=== PATIENT | male | born 1975 ===

== ENCOUNTER 2016-11-20 02:23 | Observation (INO) | payer SELFPAY ==
[2016-11-20 02:46] VITALS: RESP 18; TEMP 98.6; O2SAT 100
[2016-11-20] MEDS ORDERED: Sodium Chloride 0.9% 1,000 ML IV STA (02:58)
--- NOTE | 2016-11-20 03:01 | ED PDOC ---
HPI: Abdomen Time Seen by Provider: 11/20/16 02:59 Chief Complaint (Nursing): Abdominal Pain Chief Complaint (Provider): abdominal pain History Per: Patient (41 y/o male here with ruq pain since eating dinner at 10: 30pm. Notes now improvement despite use of caprice selter/water of anise/motrin 400mg. (+) vomiting. (-) diarrhea. (-) fevers. No prior surgeries.) Past Medical History Reviewed: Historical Data, Nursing Documentation, Vital Signs Vital Signs: Last Vital Signs Temp 98.6 F 11/20/16 02:44 Pulse 62 11/20/16 07:41 Resp 18 11/20/16 07:41 BP 122/70 11/20/16 07:41 Pulse Ox 100 11/22/16 18:40 - Family History Family History: States: No Known Family Hx - Home Medications Home Medications: Ambulatory Orders Medication Instructions Recorded Ibuprofen [Motrin Tab] 600 mg PO Q8 PRN #60 tab 11/20/16 traMADol [Ultram] 50 mg PO TID PRN #10 tab 11/20/16 - Allergies Allergies/Adverse Reactions: Allergies Allergy/AdvReac Type Severity Reaction Status Date / Time No Known Allergies Allergy Verified 11/20/16 02:57 Review of Systems ROS Statement: Except As Marked, All Systems Reviewed And Found Negative Gastrointestinal: Positive for: Vomiting, Abdominal Pain Physical Exam - Reviewed Nursing Documentation Reviewed: Yes Vital Signs Reviewed: Yes - Physical Exam Appears: Positive for: Well, Non-toxic, No Acute Distress Head Exam: Positive for: ATRAUMATIC, NORMAL INSPECTION, NORMOCEPHALIC Skin: Positive for: Normal Color, Warm, DRY Eye Exam: Positive for: EOMI, Normal appearance, PERRL ENT: Positive for: Normal ENT Inspection Neck: Positive for: Normal, Painless ROM Cardiovascular/Chest: Positive for: Regular Rate, Rhythm Respiratory: Positive for: CNT, Normal Breath Sounds Gastrointestinal/Abdominal: Positive for: Normal Exam, Bowel Sounds, Soft, Tenderness (ruq tenderness.) Back: Positive for: Normal Inspection Extremity: Positive for: Normal ROM Neurologic/Psych: Positive for: Alert, Oriented - Laboratory Results Result Diagrams: 11/20/16 03:12 11/20/16 03:12 - ECG O2 Sat by Pulse Oximetry: 100 - Progress ED Course And Treament: pepcid 20 mg iv x 1 dose zofran 4 mg iv x 1 dose morphine 4 mg iv x 1 dose ns 1 liter wide open ED OBSERVATION Date of observation admission: 11/20/16 Time of observation admission: 04:45 - Observation admission statement Patient is being placed in observation because:: management/evaluation of abdominal pain - Goals of Observation Goals of observation are:: management of abdominal ain - Progress Note Progress Note: 11/20/16 04:45 CT abd/юлия: demonstrate gallbladder distention will obtain US of RUQ in am Disposition - Clinical Impression Clinical Impression: Cholelithiasis - Patient ED Disposition Is Patient to be Admitted: Transfer of Care - Disposition Disposition: Transfer of Care Disposition Time: 06:00 Condition: FAIR Patient Signed Over To: Miriam Yousif
[2016-11-20 03:19] LABS: BASO % 0.4 % (0.0-2.0); EOS % 0.2 % (0.0-4.0); HEMATOCRIT 42.5 % (35.0-51.0); LYMPH # 2.1 K/uL (1.0-4.3); LYMPH % 15.1 % (20.0-40.0); MEAN CELL VOLUME 88.2 fl (80.0-94.0); MEAN CORPUSCULAR HEMOGLOBIN 30.1 pg (27.0-31.0); MEAN CORPUSCULAR HGB CONC 34.2 g/dL (33.0-37.0); MONO # 0.6 K/uL (0.0-0.8); MONO % 4.1 % (0.0-10.0); NEUT # 11.1 K/uL (1.8-7.0); NEUT % 80.2 % (50.0-75.0); RED CELL DISTRIBUTION WIDTH 13.3 % (11.5-14.5); WHITE BLOOD COUNT 13.9 K/uL (4.8-10.8)
[2016-11-20 03:27] LABS: CHLORIDE 102 mmol/L (98-107); SODIUM 140 mmol/l (132-148)
[2016-11-20 03:29] LABS: BILIRUBIN,TOTAL 0.7 mg/dl (0.2-1.3); GFR AFRICAN-AMERICAN > 60
[2016-11-20 03:30] LABS: ALB/GLOB RATIO 1.1 (1.0-2.1); ALKALINE PHOSPHATASE 93 U/L (38-126); ALT/SGPT 28 U/L (21-72); AST/SGOT 29 U/L (17-59); BLOOD UREA NITROGEN 17 mg/dl (9-20); CALCIUM 8.7 mg/dL (8.4-10.2); CARBON DIOXIDE 31 mmol/L (22-30); GLUCOSE,RANDOM 122 mg/dL (75-110); LIPASE 78 U/L (23-300); TOTAL PROTEIN 8.8 G/DL (6.3-8.2)
--- NOTE | 2016-11-20 04:31 | CT ---
EXAM: CT Abdomen and Pelvis With Intravenous Contrast CLINICAL HISTORY: 41 years old, male; Pain; Abdominal pain; Generalized; Additional info: Ruq pain; Evaluate appendix/gallbladder TECHNIQUE: Axial computed tomography images of the abdomen and pelvis with intravenous contrast. This CT exam was performed using one or more of the following dose reduction techniques: automated exposure control, adjustment of the mA and/or kV according to patient size, and/or use of iterative reconstruction technique. Coronal and sagittal reformatted images were created and reviewed. CONTRAST: 95 mL of [id number] administered intravenously. COMPARISON: No relevant prior studies available. FINDINGS: Limitations: Motion artifact - mild. Lower thorax: Minimal atelectasis. Few calcified granulomas. ABDOMEN: Liver: Unremarkable. No mass. Gallbladder and bile ducts: Mild gallbladder distention. No calcified stones. No ductal dilation. Pancreas: No ductal dilation. No mass. Spleen: No splenomegaly. Adrenals: No mass. Kidneys and ureters: No mass. No hydronephrosis. Stomach and bowel: Underdistention of LEFT colon. No definite mural thickening. No obstruction. Appendix: Normal caliber. No inflammation. PELVIS: Bladder: Unremarkable. Reproductive: Unremarkable as visualized. ABDOMEN and PELVIS: Intraperitoneal space: No significant fluid collection. No free air. Bones/joints: Mild degenerative changes of spine. No acute fracture. Soft tissues: Small RIGHT inguinal hernia containing fat. Vasculature: Unremarkable. No aneurysm. Lymph nodes: No pathologically enlarged lymph nodes. IMPRESSION: 1. Gallbladder distention. Suggest ultrasound. 2. Incidental/non-acute findings are described above.
[2016-11-20 04:51] LABS: RBC URINE 5 /hpf (0-3); URINE BILIRUBIN NEGATIVE (NEGATIVE); URINE BLOOD NEGATIVE (NEGATIVE); URINE COLOR YELLOW (YELLOW); URINE GLUCOSE (UA) NEG (Normal); URINE KETONE NEGATIVE (NEGATIVE); URINE LEUKOCYTE ESTERASE NEG Leu/uL (Negative); URINE PROTEIN NEGATIVE (NEGATIVE); URINE UROBILINOGEN 0.2-1.0 mg/dL (0.2-1.0); WBC URINE 1 /hpf (0-5)
[2016-11-20] MEDS ORDERED: Alum-Mag Hydrox-Simethicone Susp (30 mL) PO ONE (05:50)
--- NOTE | 2016-11-20 06:53 | US ---
EXAM: US Abdomen Limited, Right Upper Quadrant CLINICAL HISTORY: 41 years old, male; Pain; Abdominal pain; Epigastric; Additional info: Ruq pain TECHNIQUE: Real-time ultrasound of the right upper quadrant with image documentation. COMPARISON: CT - ABD PELVIS IV CONTRAST ONLY 11/20/2016 3:49:37 AM FINDINGS: Liver: Normal echogenicity. No mass. No intrahepatic bile duct dilatation. Gallbladder: Gallbladder distention. Nonmobile stones within neck. Up to 0.58 cm wall thickness. No pericholecystic fluid. No sonographic Riggs's sign. Common bile duct: No dilatation. No stones. Pancreas: Unremarkable as visualized. Right kidney: Normal echogenicity. No hydronephrosis. IMPRESSION: 1. Cholelithiasis with gallbladder wall thickening. Clinical correlation is needed. 2. Incidental/non-acute findings are described above.
[2016-11-20 07:42] VITALS: BP 122/70; PULSE 62
== END 2016-11-20 07:28 | disposition home or self-care (01) ==
LOC: H.ER 02:23 → H.EROBSV 04:44
PROVIDERS: ADMIT Emergency Medicine; ATTEND Emergency Medicine
DX: R10.11 Right upper quadrant pain (principal)
CPT/HCPCS: 74177; 76705; 80053; 81003; 83690; 85025; 96374; 96375; 99282; G0378; J2270; J2405; J7040

== ENCOUNTER 2017-03-18 21:07 | Emergency (ER) | payer OTHER ==
[2017-03-18 21:13] VITALS: BP 143/75; PULSE 57; RESP 16; TEMP 96.7; O2SAT 98
[2017-03-18] MEDS ORDERED: Sodium Chloride 0.9% 1,000 ML IV STA (21:49)
--- NOTE | 2017-03-18 22:07 | ED PDOC ---
HPI: Abdomen Time Seen by Provider: 03/18/17 21:25 Chief Complaint (Nursing): Abdominal Pain Chief Complaint (Provider): Severe abdominal pain History Per: Patient, Family History/Exam Limitations: no limitations Additional Complaint(s): 41 y/o M c/o severe RUQ abdominal pain that began 9 hours ago, is sharp, radiates diffusively to all abdomen, 10/10 intensity, associated with nausea and vomiting. Onset was 2 hours after having eggs for breakfast. Pt took Ibuprofen and Tramadol with NO improvement. Previous episode 4 months ago, CT and US of abdomen showed cholelithiasis. Pt never followed up with PCP/general surgeon. Pt denies CP, SOB, diarrhea. NKDA PMHx: denied. PSHx: denied DHx: No tobacco, alcohol or rec drugs. Past Medical History Vital Signs: Last Vital Signs Temp 96.7 F L 03/18/17 21:10 Pulse 57 L 03/18/17 21:10 Resp 16 03/18/17 21:10 BP 143/75 03/18/17 21:10 Pulse Ox 98 03/18/17 23:37 - Medical History PMH: No Chronic Diseases - Surgical History Surgical History: No Surg Hx - Family History Family History: States: No Known Family Hx - Social History Current smoker - smoking cessation education provided: No Alcohol: None Drugs: Denies - Home Medications Home Medications: Ambulatory Orders Medication Instructions Recorded Ibuprofen [Motrin Tab] 600 mg PO Q8 PRN #60 tab 11/20/16 traMADol [Ultram] 50 mg PO TID PRN #10 tab 11/20/16 Acetaminophen/Hydrocodone Bi 1 tab PO Q8 #12 tab 03/18/17 [Vicodin 300 mg-5 mg] Ibuprofen [Motrin Tab] 600 mg PO Q6 #30 tab 03/18/17 - Allergies Allergies/Adverse Reactions: Allergies Allergy/AdvReac Type Severity Reaction Status Date / Time No Known Allergies Allergy Verified 03/18/17 21:10 Review of Systems Constitutional: Negative for: Fever, Chills ENT: Negative for: Throat Pain Cardiovascular: Negative for: Chest Pain, Palpitations Respiratory: Negative for: Cough, Shortness of Breath, Hemoptysis Gastrointestinal: Positive for: Nausea, Vomiting, Abdominal Pain. Negative for : Diarrhea, Constipation, Melena Physical Exam - Physical Exam Appears: Positive for: Uncomfortable Head Exam: Positive for: NORMAL INSPECTION Skin: Positive for: Diaphoresis Eye Exam: Positive for: Normal appearance ENT: Positive for: Normal ENT Inspection Neck: Positive for: Normal, Supple Cardiovascular/Chest: Positive for: Regular Rate, Rhythm Respiratory: Positive for: Normal Breath Sounds Gastrointestinal/Abdominal: Positive for: Bowel Sounds, Soft, Tenderness (( diffusively, predominantly on palpation of RUQ)). Negative for: Guarding, Rebound Neurologic/Psych: Positive for: Alert, Oriented - Laboratory Results Result Diagrams: 03/18/17 22:12 03/18/17 22:12 - ECG O2 Sat by Pulse Oximetry: 98 Medical Decision Making Medical Decision Makin41 y/o M presenting with severe RUQ abdominal pain, nausea and vomiting. Plan: --CBC --CMP --US abdomen-gallbladder --IV morphine --IV NSS 0.9% --Zofran 20:20 IV Morphine was administered. 23:25 Pt reports marked improvement of abdominal pain and nausea. US abdomen reviewed, showed cholelithiasis. Pt will be discharged and prescribed Vicodin, pt was extensively counseled on the risks, addictive characteristics and complications from opioid overuse. Pt advised to follow a soft, fat-free diet well-balanced diet, and to return to ER if intolerable pain, fever or PO intolerance. Disposition - Clinical Impression Clinical Impression: Biliary colic - Patient ED Disposition Is Patient to be Admitted: No - Disposition Referrals: Oz Jones MD [Staff Provider] - Disposition Time: 00:30 Condition: IMPROVED Prescriptions: Acetaminophen/Hydrocodone Bi [Vicodin 300 mg-5 mg] 1 tab PO Q8 #12 tab Ibuprofen [Motrin Tab] 600 mg PO Q6 #30 tab Instructions: Biliary Colic (ED) Forms: [employer] (Portuguese) Print Language: [email or web address]
[2017-03-18] MEDS ORDERED: HYDROmorphone 0.5 mg/0.5 ml ISec IVP STA (22:15)
--- NOTE | 2017-03-18 22:44 | US ---
EXAM: US Abdomen Complete CLINICAL HISTORY: 41 years old, male; Pain; Abdominal pain; Acute; Additional info: Ruq pain TECHNIQUE: Real-time ultrasound of the abdomen (limited) with image documentation. COMPARISON: No relevant prior studies available. FINDINGS: Liver: The liver is normal measuring 15.1 cm. No intrahepatic bile duct dilation. Gallbladder: Multiple gallbladder neck stones. The gallbladder wall is top normalmeasuring 3 mm. Common bile duct: The common bile duct is normal measuring 5 mm. No stones. No dilation. Pancreas: The pancreas is poorly-visualized due to overlying bowel gas. Kidneys: The right kidney is normal measuring 11.8 cm. No stones. No hydronephrosis. IMPRESSION: Cholelithiasis. No evidence of acute cholecystitis.
[2017-03-18 22:59] LABS: BASO % 0.4 % (0.0-2.0); EOS % 0.2 % (0.0-4.0); LYMPH # 1.6 K/uL (1.0-4.3); LYMPH % 15.1 % (20.0-40.0); MEAN CELL VOLUME 89.4 fl (80.0-94.0); MEAN CORPUSCULAR HEMOGLOBIN 29.5 pg (27.0-31.0); MEAN PLATELET VOLUME 10.7 fl (7.2-11.7); MONO # 0.5 K/uL (0.0-0.8); MONO % 4.4 % (0.0-10.0); NEUT # 8.5 K/uL (1.8-7.0); NEUT % 79.9 % (50.0-75.0); WHITE BLOOD COUNT 10.7 K/uL (4.8-10.8)
[2017-03-18 23:09] LABS: ALB/GLOB RATIO 1.4 (1.0-2.1); ALKALINE PHOSPHATASE 80 U/L (38-126); ALT/SGPT 34 U/L (21-72); AST/SGOT 28 U/L (17-59); BILIRUBIN,TOTAL 0.9 mg/dl (0.2-1.3); BLOOD UREA NITROGEN 17 mg/dl (9-20); CALCIUM 8.8 mg/dL (8.4-10.2); CARBON DIOXIDE 25 mmol/L (22-30); CHLORIDE 100 mmol/L (98-107); GFR AFRICAN-AMERICAN > 60; GLUCOSE,RANDOM 124 mg/dL (75-110); LIPASE 72 U/L (23-300); POTASSIUM 3.4 MMOL/L (3.6-5.0); SODIUM 138 mmol/l (132-148)
[2017-03-18] MEDS ORDERED: Oxycodone/Acetaminophen 5/325 mg Tab PO ONE (23:59)
== END 2017-03-19 00:12 | disposition home or self-care (01) ==
LOC: H.ER 21:07
DX: K80.20 Calculus of gallbladder without cholecystitis without obstruction (principal); R11.2 Nausea with vomiting, unspecified
CPT/HCPCS: 76705; 80053; 83690; 85025; 96374; 96375; 99283; J1170; J2405; J7040

== ENCOUNTER 2018-10-07 20:45 | Inpatient (IN) | payer MEDICAID, OTHER ==
[2018-10-07] MEDS ORDERED: Sodium Chloride 0.9% 1,000 ML IV STA (21:01)
--- NOTE | 2018-10-07 21:19 | ED PDOC ---
HPI: Abdomen Time Seen by Provider: 10/07/18 20:54 Chief Complaint (Nursing): Abdominal Pain Chief Complaint (Provider): Abdominal pain History Per: Patient History/Exam Limitations: no limitations Onset/Duration Of Symptoms: Hrs (2 hours 15 minutes) Current Symptoms Are (Timing): Still Present Severity: Moderate Location Of Pain/Discomfort: RUQ Associated Symptoms: Nausea Additional Complaint(s): 43 year old male with a past medical history of gallstones presents to the ED for an evaluation of right upper quadrant abdominal pain associated with nausea that started 2.25x hours prior to arrival. Patient denies having fevers, vomiting, diarrhea, or chest pain. PMD: None provided Past Medical History Reviewed: Historical Data, Nursing Documentation, Vital Signs Vital Signs: Last Vital Signs Temp 97.6 F 10/07/18 20:47 Pulse 57 L 10/07/18 20:47 Resp 18 10/07/18 20:47 BP 160/70 H 10/07/18 20:47 Pulse Ox 100 10/07/18 20:47 PATIENCE Report Viewed: Yes Primary Care Provider: FAMILY PROVIDER,NO - Medical History Other PMH: cholelithiasis - Surgical History Surgical History: No Surg Hx - Family History Family History: States: No Known Family Hx - Social History Current smoker - smoking cessation education provided: No Alcohol: Occasional Drugs: Denies - Home Medications Home Medications: Ambulatory Orders Medication Instructions Recorded Ibuprofen [Motrin Tab] 600 mg PO Q8 PRN #60 tab 11/20/16 traMADol [Ultram] 50 mg PO TID PRN #10 tab 11/20/16 Acetaminophen/Hydrocodone Bi 1 tab PO Q8 #12 tab 03/18/17 [Vicodin 300 mg-5 mg] Ibuprofen [Motrin Tab] 600 mg PO Q6 #30 tab 03/18/17 - Allergies Allergies/Adverse Reactions: Allergies Allergy/AdvReac Type Severity Reaction Status Date / Time No Known Allergies Allergy Verified 03/18/17 21:10 Review of Systems ROS Statement: Except As Marked, All Systems Reviewed And Found Negative Constitutional: Negative for: Fever Cardiovascular: Negative for: Chest Pain Gastrointestinal: Positive for: Nausea, Abdominal Pain (RUQ). Negative for: Vomiting, Diarrhea Physical Exam - Reviewed Nursing Documentation Reviewed: Yes Vital Signs Reviewed: Yes - Physical Exam Appears: Positive for: Well, Non-toxic, No Acute Distress Head Exam: Positive for: ATRAUMATIC, NORMOCEPHALIC Skin: Positive for: Normal Color, Warm, Dry Eye Exam: Positive for: Normal appearance Cardiovascular/Chest: Positive for: Regular Rate, Rhythm Respiratory: Positive for: Normal Breath Sounds Gastrointestinal/Abdominal: Positive for: Soft, Tenderness (moderate tenderness to RUQ). Negative for: Guarding, Rebound Neurological/Psych: Positive for: Awake, Alert, Oriented (3x) - Laboratory Results Result Diagrams: 10/07/18 21:25 10/07/18 21:25 - ECG O2 Sat by Pulse Oximetry: 100 (RA) Pulse Ox Interpretation: Normal Medical Decision Making Medical Decision Makin:54 Initial impression: 43 year old male with abdominal pain. Given history of gallstones, labwork and imaging to be done while giving pain medications and fluids. Initial plan: * CT abd and pelvis w/o contrast * EKG * CMP * lipase * udip * CBC * IV NS 1,000 ml IV 100 mls/hr * morphine 2 mg IVP once * pepcid 20 mg IVP * zofran 4 mg IVP once * reevaluation 23:00 Patient signed out to Jessica Scott MD pending CT and reevaluation. Scribe Attestation: Documented by Keyana Lucio, acting as a scribe for Geovanny Tovar MD. Provider Scribe Attestation: All medical record entries made by the Scribe were at my direction and perso david dictated by me. I have reviewed the chart and agree that the record accurately reflects my personal performance of the history, physical exam, medical decision making, and the department course for this patient. I have also personally directed, reviewed, and agree with the discharge instructions and disposition. Disposition - Clinical Impression Clinical Impression: Abdominal pain - Patient ED Disposition Is Patient to be Admitted: Transfer of Care - Disposition Disposition: Transfer of Care Disposition Time: 22:47 Condition: FAIR Forms: [email or web address] (Sami) Patient Signed Over To: Jessica Scott (Pending imaging and reeval)
[2018-10-07 21:29] LABS: BASO # 0.1 K/uL (0.0-0.2); BASO % 0.5 % (0.0-2.0); EOS # 0.1 K/uL (0.0-0.7); EOS % 1.1 % (0.0-4.0); HEMOGLOBIN 14.4 g/dL (12.0-18.0); LYMPH # 1.8 K/uL (1.0-4.3); LYMPH % 13.3 % (20.0-40.0); MEAN CELL VOLUME 89.2 fl (80.0-94.0); MEAN CORPUSCULAR HGB CONC 33.6 g/dL (33.0-37.0); MEAN PLATELET VOLUME 10.1 fl (7.2-11.7); MONO # 0.6 K/uL (0.0-0.8); MONO % 4.6 % (0.0-10.0); NEUT # 10.9 K/uL (1.8-7.0); NEUT % 80.5 % (50.0-75.0); RBC 4.8 Mil/uL (4.40-5.90); RED CELL DISTRIBUTION WIDTH 12.7 % (11.5-14.5); WHITE BLOOD COUNT 13.5 K/uL (4.8-10.8)
[2018-10-07 21:38] LABS: ALB/GLOB RATIO 1.3 (1.0-2.1); ALBUMIN 4.6 g/dL (3.5-5.0); ALT/SGPT 39 U/L (21-72); AST/SGOT 30 U/L (17-59); BLOOD UREA NITROGEN 17 mg/dl (9-20); CALCIUM 8.6 mg/dL (8.4-10.2); GFR NON-AFRICAN AMERICAN > 60; LIPASE 79 U/L (23-300)
[2018-10-07] MEDS ORDERED: Morphine 4 MG/ML VIAL ONE (21:38)
[2018-10-07] MEDS ORDERED: Morphine 4 MG/ML VIAL IVP ONE (21:38)
[2018-10-07] MEDS ORDERED: Iohexol 300 100 ML IJ ONE (22:41)
[2018-10-07] MEDS ORDERED: Sodium Chloride 0.9% 100 ML IV ONE (22:42)
--- NOTE | 2018-10-07 22:46 | ED PDOC ---
- Laboratory Results Result Diagrams: 10/10/18 06:00 10/10/18 06:00 Lab Results: Total Bilirubin 0.4 mg/dl (0.2-1.3) 10/07/18 21:25 AST 30 U/L (17-59) 10/07/18 21:25 ALT 39 U/L (21-72) 10/07/18 21:25 Alkaline Phosphatase 92 U/L (38-126) 10/07/18 21:25 Total Protein 8.0 G/DL (6.3-8.2) 10/07/18 21:25 Albumin 4.6 g/dL (3.5-5.0) 10/07/18 21:25 Globulin 3.4 gm/dL (2.2-3.9) 10/07/18 21:25 Albumin/Globulin Ratio 1.3 (1.0-2.1) 10/07/18 21:25 Lipase 79 U/L (23-300) 10/07/18 21:25 - ECG O2 Sat by Pulse Oximetry: 100 (RA) Medical Decision Making Medical Decision Makin Patient signed out to me by Geovanny Tovar MD pending CT and US and reevaluation. 0147 US Abdomen Findings: Liver is normal in size measuring 15 cm. Diffuse thickening of the gallbladder measuring 4.4 mm. Impacted gallstone in the neck of the gallbladder. Distended gallbladder. Limited visualization of the pancreas secondary to gaseous bowel distention. Nondilated common bile duct measuring 5.4 mm. Unremarkable right kidney. Impression: Cholelithiasis. Developing acute cholecystitis. CT Abdomen/Pelvis Findings: Calcified granulomas of the right lower lobe. Calcified mediastinal and hilar lymph nodes. Impacted gallstones in the neck of the gallbladder. Distended, diffusely thickened gallbladder. Fat-containing right inguinal hernia without incarceration. Uncomplicated colonic diverticulosis. The liver is of uniform attenuation without mass or defect. There is no intra or extrahepatic biliary ductal dilatation. The spleen is normal. The pancreas is of normal contour and attenuation characteristics. There is no evidence of adrenal mass. Both kidneys demonstrate prompt and equal nephrograms. The kidneys are normal in size, shape and configuration. There is no evidence of renal or ureteral mass. No renal or ureteral calculi are identified. There is no hydroureter or hydronephrosis. No evidence for appendicitis. There is no bowel wall thickening. No evidence for small or large bowel obstruction. There is no evidence of abdominal ascites or lymphadenopathy. There is no evidence of intrinsic or extrinsic bladder mass. There is no pelvic ascites or lymphadenopathy. Images of the lung bases show no evidence of pleural or parenchymal mass. There are no pleural effusions. The bony structures are free of lytic or blastic lesions. IMPRESSION: Calcified granulomas of the right lower lobe. Calcified mediastinal and hilar lymph nodes. Impacted gallstones in the neck of the gallbladder. Distended, diffusely thickened gallbladder. Findings are suggestive of mild changes of acute calculous cholecystitis. Fat-containing right inguinal hernia without incarceration. Uncomplicated colonic diverticulosis. Patient started on IV Zosyn as well as ivfluids Patient to be admitted to [facility]-surg due to cholecystitis [address] Knutson, hospitalist senior talent acquisition specialist, who accepts patient for admission GI and Surgery consulted; patient evaluated by Dr. Jones in 2017 so she jean be attending for surgery consult. Care transferred to Dr. Knutson at this time. [address] Ramirez (surgical product sales consultant) who will review and discuss with Dr Jones 0229 VBG reviewed, lactate is 2.6 Repeat lactate ordered for 3 hours [address] Pelayo, who will be consulted for GI given finding of impacted stone in neck of gallbladder - Scribe Attestation: Documented by Keyana Lucio, acting as a scribe for Jessica Scott MD. Provider Scribe Attestation: All medical record entries made by the Scribe were at my direction and personally dictated by me. I have reviewed the chart and agree that the record accurately reflects my personal performance of the history, physical exam, medical decision making, and the department course for this patient. I have also personally directed, reviewed, and agree with the discharge instructions and disposition. Disposition Counseled Patient/Family Regarding: Studies Performed, Diagnosis - Clinical Impression Clinical Impression: Abdominal pain, Cholelithiasis, Cholecystitis - POA Present On Arrival: None - Disposition Disposition: Admitted as In-Patient Disposition Time: 01:53 Condition: FAIR
[2018-10-08] MEDS ORDERED: Piperacillin/Tazobact 4.5 GM in Sodium Chloride 0.9% 100 ML IVPB STA (01:48)
[2018-10-08] MEDS ORDERED: Morphine 4 MG/ML VIAL IV ONE ×2 (01:52→01:54)
[2018-10-08] MEDS ORDERED: Sodium Chloride 0.9% 1,000 ML IV STA (01:52)
[2018-10-08] MEDS ORDERED: Morphine 4 MG/ML VIAL IVP PRN (02:12)
[2018-10-08] MEDS ORDERED: Morphine 4 MG/ML VIAL ONE (02:17)
--- NOTE | 2018-10-08 02:22 | CP.PCM.HP ---
<Jaja Pittman - Last Filed: 10/08/18 02:34> History of Present Illness - History of Present Illness History of Present Illness: 43 yo male with no pertinent medical history presented to the ED with RUQ pain that started 7 pm, 10/07/18. RUQ pain is reported as constant, 10/10 pain assoc iated with NBNB vomitus (total of 3 episodes). Reports he has experienced this pain once before but it resolved on its own. Denies fevers, chills, diarrhea, sick contacts, dysuria, frequency or urgency. ROS: negative except for stated above in HPI PMD: None Surgical hx: Denies Medical hx: Denies Family hx: non-contributory Alleriges: N.K.D.A Social hx: Drinks alcohol socially, No illicit drug use and no smoking history. ED course: Hemodynamically stable - CT abd and pelvis w/o contrast - EKG - CMP; lipase; CBC - udip - 1L NS @ maintenance - morphine 4 mg IVP once and 2 mg IVP once - pepcid 20 mg IVP - zofran 4 mg IVP once Present on Admission - Present on Admission Any Indicators Present on Admission: No Past Patient History - Past Social History Alcohol: Occasional Drugs: Denies - PSYCHIATRIC Hx Substance Use: No - SURGICAL HISTORY Hx Surgeries: No - ANESTHESIA Hx Anesthesia: No Meds Allergies/Adverse Reactions: Allergies Allergy/AdvReac Type Severity Reaction Status Date / Time No Known Allergies Allergy Verified 03/18/17 21:10 Physical Exam - Constitutional Appears: In Acute Distress (in pain and diaphoretic) - Eye Exam Eye Exam: Normal appearance - ENT Exam ENT Exam: Mucous Membranes Moist - Respiratory Exam Respiratory Exam: Clear to Auscultation Bilateral, NORMAL BREATHING PATTERN. absent: Accessory Muscle Use, Chest Wall Tenderness, Decreased Breath Sounds, Prolonged Expiratory Phase, Rales, Rhonchi, Wheezes, Respiratory Distress, Stridor - Cardiovascular Exam Cardiovascular Exam: REGULAR RHYTHM, +S1, +S2 - GI/Abdominal Exam GI & Abdominal Exam: Normal Bowel Sounds, Soft, Tenderness (RUQ tenderness, riggs's positive). absent: Distended, Firm, Rigid - Extremities Exam Extremities exam: Positive for: normal capillary refill, normal inspection, pedal pulses present (+2 dorsalis pedis and tibialis posterior present bilaterally.). Negative for: calf tenderness, pedal edema, tenderness - Neurological Exam Neurological exam: Alert, Oriented x3 - Psychiatric Exam Psychiatric exam: Normal Affect, Normal Mood - Skin Skin Exam: Dry, Intact, Normal Color, Warm Results - Vital Signs Recent Vital Signs: Last Vital Signs Temp 98.7 F 10/07/18 23:48 Pulse 55 L 10/07/18 23:48 Resp 18 10/07/18 23:48 BP 130/60 10/07/18 23:48 Pulse Ox 100 10/08/18 01:59 - Labs Result Diagrams: 10/07/18 21:25 10/07/18 21:25 Labs: Laboratory Results - last 24 hr 10/07/18 10/07/18 21:25 21:25 WBC 13.5 H RBC 4.80 Hgb 14.4 Hct 42.9 MCV 89.2 MCH 30.0 MCHC 33.6 RDW 12.7 Plt Count 163 MPV 10.1 Neut % (Auto) 80.5 H Lymph % (Auto) 13.3 L Terry % (Auto) 4.6 Eos % (Auto) 1.1 Baso % (Auto) 0.5 Neut # (Auto) 10.9 H Lymph # (Auto) 1.8 Terry # (Auto) 0.6 Eos # (Auto) 0.1 Baso # (Auto) 0.1 Sodium 139 Potassium 3.8 Chloride 98 Carbon Dioxide 30 Anion Gap 15 BUN 17 Creatinine 1.1 Est GFR ( Amer) > 60 Est GFR (Non-Af Amer) > 60 Random Glucose 137 H Calcium 8.6 Total Bilirubin 0.4 AST 30 ALT 39 Alkaline Phosphatase 92 Total Protein 8.0 Albumin 4.6 Globulin 3.4 Albumin/Globulin Ratio 1.3 Lipase 79 Assessment & Plan (1) Acute cholecystitis Status: Acute - Assessment and Plan (Free Text) Assessment: 43 yo male with no pertinent medical history presented to the ED with RUQ pain admitted for Acute Cholecystitis. Plan: 1. Acute Cholecystitis - Admit to Med/Surg - Hemodynamically stable, afebrile - Leukocytosis of 132.5 - U/s: Cholithiasis, developing acute cholecystitis - CT Abd/Pelvis: Calcified granulomas of the right lower lobe. Calcified mediastinal and hilar lymph nodes. Impacted gallstones in the neck of the gallbladder. Distended, diffusely thickened gallbladder. Findings are suggestive of mild changes of acute calculous cholecystitis. Fat-containing right inguinal hernia without incarceration. Uncomplicated colonic diverticulosis. - NPO - Surgery consult appreciated - Zosyn Q6H - Pain medications: Morphine - Zofran for nausea - Follow up labs 2. DVT prophylaxis - SCD - early ambulation 3. Full code <Mat Knutson - Last Filed: 10/08/18 06:52> Results - Vital Signs Recent Vital Signs: Last Vital Signs Temp 99 F 10/08/18 02:58 Pulse 71 10/08/18 03:10 Resp 19 10/08/18 03:10 BP 123/73 10/08/18 02:58 Pulse Ox 100 10/08/18 06:17 - Labs Result Diagrams: 10/07/18 21:25 10/07/18 21:25 Labs: Laboratory Results - last 24 hr 10/07/18 10/07/18 10/08/18 21:25 21:25 02:25 WBC 13.5 H RBC 4.80 Hgb 14.4 Hct 42.9 MCV 89.2 MCH 30.0 MCHC 33.6 RDW 12.7 Plt Count 163 MPV 10.1 Neut % (Auto) 80.5 H Lymph % (Auto) 13.3 L Terry % (Auto) 4.6 Eos % (Auto) 1.1 Baso % (Auto) 0.5 Neut # (Auto) 10.9 H Lymph # (Auto) 1.8 Terry # (Auto) 0.6 Eos # (Auto) 0.1 Baso # (Auto) 0.1 pO2 26 L VBG pH 7.31 L VBG pCO2 61 H VBG HCO3 25.6 VBG Total CO2 32.6 H VBG O2 Sat (Calc) 49.5 VBG Base Excess 2.8 H VBG Potassium 3.9 Glucose 129 H Lactate 2.6 H FiO2 21.0 Sodium 139 134.0 Potassium 3.8 Chloride 98 99.0 Carbon Dioxide 30 Anion Gap 15 BUN 17 Creatinine 1.1 Est GFR ( Amer) > 60 Est GFR (Non-Af Amer) > 60 Random Glucose 137 H Calcium 8.6 Total Bilirubin 0.4 AST 30 ALT 39 Alkaline Phosphatase 92 Total Protein 8.0 Albumin 4.6 Globulin 3.4 Albumin/Globulin Ratio 1.3 Lipase 79 Venous Blood Potassium 3.9 Assessment & Plan - Assessment and Plan (Free Text) Plan: History as documented by resident was reviewed with patient and resident. I performed the slaughter elements of exam and agree with the above findings. Diagnostics were reviewed and medical decision making and plan of care performed by me. 43 yo male with no significant PMH p/w severe RUQ pain since last night. On exam has positive Riggs' sign with severe RUQ tenderness and guarding but no rigidity or rebound. Blood work unremarkable except for WBC of 13.[address] showed acute cholecysitis which was verified on US with suspicious GB neck stone. Agree with IVF and Zosyn. NPO, surgery and GI consult. As far as risk assessment patient is of average risk for an intermed iate risk procedure (cholecystectomy). No need for any further pre-op work up. Can proceed with surgery as deemed appropriate by surgical team.
[2018-10-08 02:28] LABS: VENOUS BLOOD GAS BASE EXCESS 2.8 mmol/L (0.0-2.0); VENOUS BLOOD GAS PCO2 61 mmHg (40-60); VENOUS BLOOD GAS PO2 26 mm/Hg (30-55); VENOUS BLOOD PH 7.31 (7.32-7.43)
[2018-10-08] MEDS: Piperacillin/Tazobact 3.375 GM in Sodium Chloride 0.9% 100 ML IVPB SCH ×4 (03:42→21:44)
[2018-10-08] MEDS: Lactated Ringer's 1,000 ML IV SCH ×2 (06:40→11:01)
[2018-10-08 06:44] LABS: HEMOGLOBIN 15.1 g/dL (12.0-18.0); MEAN CELL VOLUME 90.2 fl (80.0-94.0); MEAN CORPUSCULAR HEMOGLOBIN 29.8 pg (27.0-31.0); MEAN CORPUSCULAR HGB CONC 33.1 g/dL (33.0-37.0); RBC 5.04 Mil/uL (4.40-5.90); RED CELL DISTRIBUTION WIDTH 12.7 % (11.5-14.5); WHITE BLOOD COUNT 21.2 K/uL (4.8-10.8)
[2018-10-08 07:14] LABS: ALB/GLOB RATIO 1.3 (1.0-2.1); ALBUMIN 4.8 g/dL (3.5-5.0); ALT/SGPT 40 U/L (21-72); AST/SGOT 38 U/L (17-59); BLOOD UREA NITROGEN 11 mg/dl (9-20); CALCIUM 8.6 mg/dL (8.4-10.2); GFR NON-AFRICAN AMERICAN > 60
[2018-10-08 07:51] LABS: INR 1.1; PROTHROMBIN TIME 12.7 Seconds (9.8-13.1)
[2018-10-08 07:54] LABS: PARTIAL THROMBOPLASTIN TIME 32.1 Seconds (25.6-37.1)
--- NOTE | 2018-10-08 09:44 | CP.PCM.CON ---
History of Present Illness - History of Present Illness History of Present Illness: Surgery Consult Note. Dr. Jones 43yo M with no PMHx here for evaluation of abdominal pain. Pain started last night, located in the RUQ, does not radiate. Associated with some nausea, no vomiting. No fevers or chills. Has been seeing Dr. Jones as outpatient and had a follow up appointment but has new pain and comes into the hospital with pain. No urinary complaints. No CP/SOB. Abd US: evidence of a gallstone in the neck of the GB. CT Abd/Pelvis: GB wall 4.4mm, distended gb. impacted GB at neck. PMHx: Denies PSHx: Denies Family Hx: Denies Social Hx: Denies Tobacco use, denies ETOH use, Denies illicit drugs NKDA Review of Systems - Review of Systems All systems: reviewed and no additional remarkable complaints except - Constitutional Constitutional: As Per HPI. absent: Chills, Fever Past Patient History - Past Medical History & Family History Past Medical History?: Yes - Past Social History Smoking Status: Never Smoked - CARDIAC Hx Cardiac Disorders: No - PULMONARY Hx Respiratory Disorders: No - NEUROLOGICAL Hx Neurological Disorder: No - HEENT Hx HEENT Problems: No - RENAL Hx Chronic Kidney Disease: No - ENDOCRINE/METABOLIC Hx Endocrine Disorders: No - HEMATOLOGICAL/ONCOLOGICAL Hx Blood Disorders: No Hx AIDS: No Hx Human Immunodeficiency Virus (HIV): No - INTEGUMENTARY Hx Dermatological Problems: No - MUSCULOSKELETAL/RHEUMATOLOGICAL Hx Musculoskeletal Disorders: No Hx Falls: No - GASTROINTESTINAL Hx Gastrointestinal Disorders: No - GENITOURINARY/GYNECOLOGICAL Hx Genitourinary Disorders: No - PSYCHIATRIC Hx Psychophysiologic Disorder: No Hx Substance Use: No - SURGICAL HISTORY Hx Surgeries: No - ANESTHESIA Hx Anesthesia: No Meds Allergies/Adverse Reactions: Allergies Allergy/AdvReac Type Severity Reaction Status Date / Time No Known Allergies Allergy Verified 03/18/17 21:10 - Medications Medications: Current Medications Famotidine (Pepcid) 20 mg IVP DAILY [facility] Last Admin: 10/08/18 08:57 Dose: 20 mg Lactated Ringer's (Lactated Ringer's) 1,000 mls @ 125 mls/hr IV .Q8H [facility] Last Admin: 10/08/18 06:40 Dose: 125 mls/hr Piperacillin Sod/Tazobactam (Sod 3.375 gm/ Sodium Chloride) 100 mls @ 100 mls/hr IVPB Q6H [facility]; Protocol Last Admin: 10/08/18 08:54 Dose: 100 mls/hr Morphine Sulfate (Morphine) 2 mg IVP Q4 PRN PRN Reason: Pain, moderate (4-7) Morphine Sulfate (Morphine) 4 mg IVP Q4 PRN PRN Reason: Pain, severe (8-10) Ondansetron HCl (Zofran Inj) 4 mg IVP Q6 PRN PRN Reason: Nausea/Vomiting Physical Exam - Constitutional Appears: Well, No Acute Distress - Head Exam Head Exam: ATRAUMATIC, NORMAL INSPECTION, NORMOCEPHALIC - Eye Exam Eye Exam: EOMI. absent: Scleral icterus - ENT Exam ENT Exam: Mucous Membranes Moist - Respiratory Exam Respiratory Exam: NORMAL BREATHING PATTERN. absent: Accessory Muscle Use, Respiratory Distress - Cardiovascular Exam Cardiovascular Exam: absent: JVD - GI/Abdominal Exam GI & Abdominal Exam: Soft. absent: Distended, Firm, Guarding Additional comments: RUQ tenderness to deep palpation - Extremities Exam Extremities exam: Positive for: normal inspection. Negative for: calf tenderness - Back Exam Back exam: NORMAL INSPECTION - Neurological Exam Neurological exam: Alert, Oriented x3 - Skin Skin Exam: Dry, Intact, Normal Color, Warm Results - Vital Signs Recent Vital Signs: Last Vital Signs Temp 98.5 F 10/08/18 08:05 Pulse 62 10/08/18 08:05 Resp 19 10/08/18 08:05 BP 127/78 10/08/18 08:05 Pulse Ox 96 10/08/18 08:05 - Labs Result Diagrams: 10/08/18 06:34 10/08/18 06:34 Labs: Laboratory Results - last 24 hr 10/07/18 10/07/18 10/08/18 21:25 21:25 02:25 WBC 13.5 H RBC 4.80 Hgb 14.4 Hct 42.9 MCV 89.2 MCH 30.0 MCHC 33.6 RDW 12.7 Plt Count 163 MPV 10.1 Neut % (Auto) 80.5 H Lymph % (Auto) 13.3 L Bell % (Auto) 4.6 Eos % (Auto) 1.1 Baso % (Auto) 0.5 Neut # (Auto) 10.9 H Lymph # (Auto) 1.8 Bell # (Auto) 0.6 Eos # (Auto) 0.1 Baso # (Auto) 0.1 PT INR APTT pO2 26 L VBG pH 7.31 L VBG pCO2 61 H VBG HCO3 25.6 VBG Total CO2 32.6 H VBG O2 Sat (Calc) 49.5 VBG Base Excess 2.8 H VBG Potassium 3.9 Glucose 129 H Lactate 2.6 H FiO2 21.0 Sodium 139 134.0 Potassium 3.8 Chloride 98 99.0 Carbon Dioxide 30 Anion Gap 15 BUN 17 Creatinine 1.1 Est GFR ( Amer) > 60 Est GFR (Non-Af Amer) > 60 Random Glucose 137 H Calcium 8.6 Total Bilirubin 0.4 AST 30 ALT 39 Alkaline Phosphatase 92 Total Protein 8.0 Albumin 4.6 Globulin 3.4 Albumin/Globulin Ratio 1.3 Lipase 79 Venous Blood Potassium 3.9 10/08/18 10/08/18 10/08/18 06:34 06:34 07:00 WBC 21.2 H D RBC 5.04 Hgb 15.1 Hct 45.5 MCV 90.2 MCH 29.8 MCHC 33.1 RDW 12.7 Plt Count 172 MPV Neut % (Auto) Lymph % (Auto) Bell % (Auto) Eos % (Auto) Baso % (Auto) Neut # (Auto) Lymph # (Auto) Bell # (Auto) Eos # (Auto) Baso # (Auto) PT 12.7 INR 1.1 APTT 32.1 pO2 VBG pH VBG pCO2 VBG HCO3 VBG Total CO2 VBG O2 Sat (Calc) VBG Base Excess VBG Potassium Glucose Lactate FiO2 Sodium 135 Potassium 4.0 Chloride 96 L Carbon Dioxide 26 Anion Gap 17 BUN 11 Creatinine 0.8 Est GFR ( Amer) > 60 Est GFR (Non-Af Amer) > 60 Random Glucose 137 H Calcium 8.6 Total Bilirubin 0.9 AST 38 ALT 40 Alkaline Phosphatase 86 Total Protein 8.4 H Albumin 4.8 Globulin 3.6 Albumin/Globulin Ratio 1.3 Lipase Venous Blood Potassium Assessment & Plan - Assessment and Plan (Free Text) Assessment: 43yo M with cholecystitis Plan: - Plan for OR today, 10/08/18 - NPO - Antiemetics as needed - Continue IV Abx Further Recs as per Dr. Robert Fritz PGY2 surgery
--- NOTE | 2018-10-08 11:24 | CT ---
Date of service: 10/07/2018 PROCEDURE: CT Abdomen and Pelvis with contrast HISTORY: Abd pain COMPARISON: 11/20/2016 CT abdomen and pelvis. October 08, 2018. Abdominal ultrasound TECHNIQUE: Intravenous contrast dose: 90 cc Omnipaque 300. Radiation dose: Total exam DLP = 738.04 mGy-cm. This CT exam was performed using one or more of the following dose reduction techniques: Automated exposure control, adjustment of the mA and/or kV according to patient size, and/or use of iterative reconstruction technique. FINDINGS: LOWER THORAX: Unremarkable. LIVER: Unremarkable. No gross lesion or ductal dilatation. GALLBLADDER AND BILE DUCTS: Gallstones identified on concurrent abdominal ultrasound not readily apparent on the current study. No right upper quadrant inflammatory changes detected. PANCREAS: Unremarkable. No gross lesion or ductal dilatation. SPLEEN: Unremarkable. ADRENALS: Unremarkable. No mass. KIDNEYS AND URETERS: Unremarkable. No hydronephrosis. No solid mass. VASCULATURE: Unremarkable. No aortic aneurysm. No atherosclerotic calcification or mural plaque present. BOWEL: Unremarkable. No obstruction. No gross mural thickening. APPENDIX: A normal appendix is visualized in it's entirety. PERITONEUM: Unremarkable. No free fluid. No free air. Please note: The patient has known gallstones, seen on concurrent abdominal ultrasound. LYMPH NODES: Unremarkable. No enlarged lymph nodes. BLADDER: Unremarkable. REPRODUCTIVE: Unremarkable. BONES: No acute fracture. OTHER FINDINGS: None. IMPRESSION: Unremarkable contrast enhanced CT of the abdomen and pelvis.
--- NOTE | 2018-10-08 11:35 | US ---
Date of service: 10/08/2018 HISTORY: gallstones RUQ pain COMPARISON: 03/18/2017. Abdominal ultrasound. October 07, 2018. CT abdomen and pelvis TECHNIQUE: Sonographic evaluation of the right upper quadrant of the abdomen. FINDINGS: LIVER: Measures cm in length. Patent portal and hepatic venous systems. Portal venous flow: Hepatopetal. echogenicity of the liver parenchyma. No mass. No intrahepatic bile duct dilatation. GALLBLADDER: Cholelithiasis. Negative study for gallbladder wall thickening, pericholecystic fluid, sonographic Riggs's sign. COMMON BILE DUCT: Measures 5.8 mm. No stones. No dilatation. PANCREAS: Unremarkable as visualized. No mass. No ductal dilatation. RIGHT KIDNEY: Measures 4.6 x 6 x 10.8 cm in length. Normal echogenicity. No calculus, mass, or hydronephrosis. AORTA: No aneurysmal dilatation. IVC: Unremarkable. OTHER FINDINGS: None . IMPRESSION: Cholelithiasis. No sonographic evidence of acute cholecystitis.
[2018-10-08] MEDS ORDERED: Lidocaine 4% (Laryng-O-Jet) Kit MM ONE (12:08)
[2018-10-08] MEDS ORDERED: Propofol 10 mg/ml Inj (20 ML) ONE (12:08)
[2018-10-08] MEDS ORDERED: Rocuronium 10 mg/ml (5 ml) ONE (12:08)
[2018-10-08] MEDS ORDERED: Succinylcholine Chloride 20 mg/ml Syr (5 ml) IV ONE (12:08)
[2018-10-08] MEDS ORDERED: Phenylephrine 10 mg/ml Inj ONE (12:11)
[2018-10-08] MEDS ORDERED: Dexamethasone 4 mg/1 ml ONE (12:11)
[2018-10-08] MEDS ORDERED: Lactated Ringer's 1,000 ML IV ONE ×2 (12:23→13:30)
[2018-10-08] MEDS ORDERED: Midazolam 2 MG/2 ML VIAL ONE (12:35)
[2018-10-08] MEDS ORDERED: Morphine 5 mg/10 ml preservative-free Inj(Duramorph) ONE (13:06)
--- NOTE | 2018-10-08 13:31 | CARD ---
APPROVED REPORT Date of service: 10/07/2018 EKG Measurement Heart [id number] <Conclusion> Sinus bradycardia Otherwise normal ECG
[2018-10-08] MEDS ORDERED: Neostigmine 1:1000 (1 mg/ml) Inj ONE (13:52)
[2018-10-08] MEDS ORDERED: HYDROmorphone 0.5 mg/0.5 ml ISec IVP PRN (14:21)
[2018-10-08] MEDS ORDERED: Lactated Ringer's 1,000 ML IV SCH (14:30)
--- NOTE | 2018-10-08 14:32 | PCM.SURG1 ---
Surgeon's Initial Post Op Note - Surgeon's Notes Surgeon: Dr. Jones Riprap Worker: Lam PGY2 Type of Anesthesia: General Endo Anesthesia Administered By: Dr. Mata Pre-Operative Diagnosis: Acute Cholecystitis Operative Findings: See operative report Post-Operative Diagnosis: Same Operation Performed: Laparoscopic Cholecystectomy Specimen/Specimens Removed: Gallbladder Estimated Blood Loss: EBL {In ML}: 20 Blood Products Given: N/A Drains Used: No Drains Post-Op Condition: Good Date of Surgery/Procedure: 10/08/18 Time of Surgery/Procedure: 14:31
[2018-10-08] MEDS ORDERED: Oxycodone/Acetaminophen 5/325 mg Tab PO PRN (15:49)
[2018-10-09] MEDS: Piperacillin/Tazobact 3.375 GM in Sodium Chloride 0.9% 100 ML IVPB SCH ×4 (03:10→21:04)
[2018-10-09 06:27] LABS: HEMOGLOBIN 12.7 g/dL (12.0-18.0); MEAN CELL VOLUME 89.9 fl (80.0-94.0); MEAN CORPUSCULAR HEMOGLOBIN 29.9 pg (27.0-31.0); MEAN CORPUSCULAR HGB CONC 33.3 g/dL (33.0-37.0); RBC 4.25 Mil/uL (4.40-5.90); RED CELL DISTRIBUTION WIDTH 12.8 % (11.5-14.5); WHITE BLOOD COUNT 20.8 K/uL (4.8-10.8)
[2018-10-09 06:50] LABS: ALB/GLOB RATIO 1.1 (1.0-2.1); ALBUMIN 3.6 g/dL (3.5-5.0); ALT/SGPT 61 U/L (21-72); AST/SGOT 38 U/L (17-59); BLOOD UREA NITROGEN 17 mg/dl (9-20); CALCIUM 7.9 mg/dL (8.4-10.2); GFR NON-AFRICAN AMERICAN > 60
--- NOTE | 2018-10-09 08:59 | CP.PCM.PN ---
Subjective - Date & Time of Evaluation Date of Evaluation: 10/09/18 Time of Evaluation: 07:35 - Subjective Subjective: Surgery Progress note. Dr. Jones Pt seen and examined at bedside. No acute events overnight. No N/V/D. Tolerating diet. No new complaints. No fevers or chills. Objective - Vital Signs/Intake and Output Vital Signs (last 24 hours): Temp Pulse Resp BP Pulse Ox 98.7 F 60 20 101/62 94 L 10/09/18 08:11 10/09/18 08:11 10/09/18 08:11 10/09/18 08:11 10/09/18 08:11 - Medications Medications: Current Medications Famotidine (Pepcid) 20 mg IVP DAILY [facility] Last Admin: 10/09/18 08:47 Dose: 20 mg Piperacillin Sod/Tazobactam (Sod 3.375 gm/ Sodium Chloride) 100 mls @ 100 mls/hr IVPB Q6H [facility]; Protocol Last Admin: 10/09/18 08:43 Dose: 100 mls/hr Acetaminophen (Ofirmev) 100 mls @ 400 mls/hr IVPB Q6H [facility]; Protocol Stop: 10/09/18 12:31 Last Admin: 10/09/18 05:59 Dose: 400 mls/hr Ibuprofen (Motrin Tab) 400 mg PO Q6 PRN PRN Reason: Pain, Mild (1-3) Morphine Sulfate (Morphine) 4 mg IVP Q4 PRN PRN Reason: Pain, severe (8-10) Ondansetron HCl (Zofran Inj) 4 mg IVP Q6 PRN PRN Reason: Nausea/Vomiting Oxycodone/Acetaminophen (Percocet 5/325 Mg Tab) 1 tab PO Q4 PRN PRN Reason: Pain, moderate (4-7) Stop: 10/11/18 15:50 - Labs Labs: 10/09/18 05:30 10/09/18 05:30 PT 12.7 Seconds (9.8-13.1) 10/08/18 07:00 INR 1.1 10/08/18 07:00 APTT 32.1 Seconds (25.6-37.1) 10/08/18 07:00 - Constitutional Appears: Well, Non-toxic - Head Exam Head Exam: ATRAUMATIC, NORMAL INSPECTION, NORMOCEPHALIC - Eye Exam Eye Exam: EOMI, Normal appearance. absent: Scleral icterus - ENT Exam ENT Exam: Mucous Membranes Moist - Respiratory Exam Respiratory Exam: NORMAL BREATHING PATTERN. absent: Accessory Muscle Use, Respiratory Distress - Cardiovascular Exam Cardiovascular Exam: RRR. absent: JVD - GI/Abdominal Exam GI & Abdominal Exam: Soft. absent: Firm, Guarding, Rigid, Rebound Additional comments: Mild razia-incisional tenderness. Incisions clean, dry and intact with dermabond. - Extremities Exam Extremities Exam: Normal Inspection. absent: Calf Tenderness - Neurological Exam Neurological Exam: Alert, Awake, Oriented x3 - Skin Skin Exam: Dry, Intact, Normal Color, Warm Assessment and Plan - Assessment and Plan (Free Text) Assessment: 43yo M with cholecystitis s/p Lap Isabel. POD 1 Plan: - Continue diet as tolerated - Rec continue IV abx - monitor patient clinically - Repeat labs tomorrow AM - Antiemetics as needed Further recs as per Dr. Jones. Sorin Fritz PGY2 surgery
--- NOTE | 2018-10-09 10:57 | CP.PCM.PN ---
Subjective - Date & Time of Evaluation Date of Evaluation: 10/09/18 Time of Evaluation: 10:56 - Subjective Subjective: Pt seen bedside, still complains of abdominal pain. Denies N/V/fever/headache/dizziness. Objective - Vital Signs/Intake and Output Vital Signs (last 24 hours): Temp Pulse Resp BP Pulse Ox 98.7 F 60 20 101/62 94 L 10/09/18 08:11 10/09/18 08:11 10/09/18 08:11 10/09/18 08:11 10/09/18 08:11 - Medications Medications: Current Medications Famotidine (Pepcid) 20 mg IVP DAILY [facility] Last Admin: 10/09/18 08:47 Dose: 20 mg Piperacillin Sod/Tazobactam (Sod 3.375 gm/ Sodium Chloride) 100 mls @ 100 mls/hr IVPB Q6H [facility]; Protocol Last Admin: 10/09/18 08:43 Dose: 100 mls/hr Acetaminophen (Ofirmev) 100 mls @ 400 mls/hr IVPB Q6H [facility]; Protocol Stop: 10/09/18 12:31 Last Admin: 10/09/18 05:59 Dose: 400 mls/hr Ibuprofen (Motrin Tab) 400 mg PO Q6 PRN PRN Reason: Pain, Mild (1-3) Morphine Sulfate (Morphine) 4 mg IVP Q4 PRN PRN Reason: Pain, severe (8-10) Ondansetron HCl (Zofran Inj) 4 mg IVP Q6 PRN PRN Reason: Nausea/Vomiting Oxycodone/Acetaminophen (Percocet 5/325 Mg Tab) 1 tab PO Q4 PRN PRN Reason: Pain, moderate (4-7) Stop: 10/11/18 15:50 - Labs Labs: 10/09/18 05:30 10/09/18 05:30 PT 12.7 Seconds (9.8-13.1) 10/08/18 07:00 INR 1.1 10/08/18 07:00 APTT 32.1 Seconds (25.6-37.1) 10/08/18 07:00 - Constitutional Appears: Non-toxic, No Acute Distress - Head Exam Head Exam: NORMAL INSPECTION - Respiratory Exam Respiratory Exam: NORMAL BREATHING PATTERN. absent: Respiratory Distress - Cardiovascular Exam Cardiovascular Exam: REGULAR RHYTHM - GI/Abdominal Exam Additional comments: lap dinah sites appreciated, dry, no active bleeding, no erythema or purulent discharge. - Extremities Exam Extremities Exam: Normal Inspection. absent: Pedal Edema - Neurological Exam Neurological Exam: Alert, Awake, Oriented x3 - Psychiatric Exam Psychiatric exam: Normal Affect, Normal Mood - Skin Skin Exam: Normal Color, Warm Assessment and Plan - Assessment and Plan (Free Text) Assessment: 43 yo male with no pertinent medical history presented to the ED with RUQ pain admitted for Acute Cholecystitis s/p lap dinah, post-op day 1. Plan: Abdominal pain secondary to cholelithiasis and suspected cholecystitis - Hemodynamically stable, afebrile - Leukocytosis 20.8 today > 21.2 > 13.5 - U/s: Cholithiasis, developing acute cholecystitis - CT Abd/Pelvis: Calcified granulomas of the right lower lobe. Calcified me diastinal and hilar lymph nodes. Impacted gallstones in the neck of the gallbladder. Distended, diffusely thickened gallbladder. Findings are suggestive of mild changes of acute calculous cholecystitis. Fat-containing right inguinal hernia without incarceration. Uncomplicated colonic diverticulosis. - Lap cholecystectomy 10/08, post-op day 1 - Zosyn Q6H - Pain medications: Morphine - Zofran for nausea - Follow up labs DVT prophylaxis - SCD - early ambulation
--- NOTE | 2018-10-09 17:09 | CP.PCM.CON ---
History of Present Illness - History of Present Illness History of Present Illness: 43 yo male admitted yesterday with right sided abdominal pain, and evidence of cholecystitis on imaging. He underwent lap/dinah yesterday and reports less pain today. WBC stabilizing. Review of Systems - Constitutional Constitutional: absent: Chills - EENT Eyes: absent: Blurred Vision Ears: absent: Decreased Hearing Nose/Mouth/Throat: absent: Epistaxis - Cardiovascular Cardiovascular: absent: Chest Pain - Respiratory Respiratory: absent: Dyspnea - Gastrointestinal Gastrointestinal: As Per HPI - Genitourinary Genitourinary: absent: Change in Urinary Stream Past Patient History - Past Medical History & Family History Past Medical History?: Yes - Past Social History Smoking Status: Never Smoked - CARDIAC Hx Cardiac Disorders: No - PULMONARY Hx Respiratory Disorders: No - NEUROLOGICAL Hx Neurological Disorder: No - HEENT Hx HEENT Problems: No - RENAL Hx Chronic Kidney Disease: No - ENDOCRINE/METABOLIC Hx Endocrine Disorders: No - HEMATOLOGICAL/ONCOLOGICAL Hx Blood Disorders: No Hx AIDS: No Hx Human Immunodeficiency Virus (HIV): No - INTEGUMENTARY Hx Dermatological Problems: No - MUSCULOSKELETAL/RHEUMATOLOGICAL Hx Musculoskeletal Disorders: No Hx Falls: No - GASTROINTESTINAL Hx Gastrointestinal Disorders: No - GENITOURINARY/GYNECOLOGICAL Hx Genitourinary Disorders: No - PSYCHIATRIC Hx Psychophysiologic Disorder: No Hx Substance Use: No - SURGICAL HISTORY Hx Surgeries: No - ANESTHESIA Hx Anesthesia: No Meds Allergies/Adverse Reactions: Allergies Allergy/AdvReac Type Severity Reaction Status Date / Time No Known Allergies Allergy Verified 03/18/17 21:10 - Medications Medications: Current Medications Famotidine (Pepcid) 20 mg IVP DAILY [facility] Last Admin: 10/09/18 08:47 Dose: 20 mg Piperacillin Sod/Tazobactam (Sod 3.375 gm/ Sodium Chloride) 100 mls @ 100 mls/hr IVPB Q6H [facility]; Protocol Last Admin: 10/09/18 13:50 Dose: 100 mls/hr Ibuprofen (Motrin Tab) 400 mg PO Q6 PRN PRN Reason: Pain, Mild (1-3) Ondansetron HCl (Zofran Inj) 4 mg IVP Q6 PRN PRN Reason: Nausea/Vomiting Oxycodone/Acetaminophen (Percocet 5/325 Mg Tab) 1 tab PO Q4 PRN PRN Reason: Pain, moderate (4-7) Stop: 10/11/18 15:50 Physical Exam - Constitutional Appears: No Acute Distress - Head Exam Head Exam: ATRAUMATIC - Eye Exam Eye Exam: Normal appearance - ENT Exam ENT Exam: Normal Exam - Neck Exam Neck exam: Positive for: Normal Inspection - Respiratory Exam Respiratory Exam: Clear to Auscultation Bilateral - Cardiovascular Exam Cardiovascular Exam: REGULAR RHYTHM - GI/Abdominal Exam GI & Abdominal Exam: Normal Bowel Sounds, Soft, Tenderness Results - Vital Signs Recent Vital Signs: Last Vital Signs Temp 98.7 F 10/09/18 16:01 Pulse 70 10/09/18 16:01 Resp 19 10/09/18 16:01 BP 95/60 L 10/09/18 16:01 Pulse Ox 95 10/09/18 16:01 - Labs Result Diagrams: 10/09/18 05:30 10/09/18 05:30 Labs: Laboratory Results - last 24 hr 10/09/18 10/09/18 05:30 05:30 WBC 20.8 H RBC 4.25 L Hgb 12.7 D Hct 38.2 MCV 89.9 MCH 29.9 MCHC 33.3 RDW 12.8 Plt Count 147 Sodium 135 Potassium 3.7 Chloride 97 L Carbon Dioxide 30 Anion Gap 12 BUN 17 Creatinine 1.0 Est GFR ( Amer) > 60 Est GFR (Non-Af Amer) > 60 Random Glucose 143 H Calcium 7.9 L Total Bilirubin 1.3 AST 38 ALT 61 Alkaline Phosphatase 56 Total Protein 6.8 Albumin 3.6 Globulin 3.2 Albumin/Globulin Ratio 1.1 Assessment & Plan (1) Acute cholecystitis Assessment and Plan: Pathology showed gangrenous cholecystitis. Improving post surgery. Status: Acute
--- NOTE | 2018-10-09 20:01 | OP ---
PROCEDURE DATE: 10/08/2018 SURGEON: Oz Jones MD WARRANT CLERK: Sorin Fritz, PGY-2 TYPE OF ANESTHESIA: General endotracheal. ANESTHESIA ADMINISTERED BY: Jayant Sandoval MD PREOPERATIVE DIAGNOSIS: Acute cholecystitis. POSTOPERATIVE DIAGNOSIS: Acute cholecystitis. OPERATION PERFORMED: Laparoscopic cholecystectomy. SPECIMEN REMOVED: Gallbladder. ESTIMATED BLOOD LOSS: 20 mL. BLOOD PRODUCTS: No intraoperative blood products were given. DRAINS: No drains were used. POSTOPERATIVE CONDITION: Good. DATE OF SURGERY: 10/08/2018. TIME OF SURGERY: 02:31. INDICATIONS: The patient is a 43-year-old male with no significant past medical history who was sent in for evaluation of abdominal pain that started last night. Workup revealed an elevated white count, gallbladder wall thickening, and distended gallbladder. Findings were concerning for acute cholecystitis and the patient was consented for laparoscopic cholecystectomy. Risks and benefits of the procedure were discussed at length with the patient and verbal consent was obtained and was discussed with nursing staff. DESCRIPTION OF PROCEDURE: The patient was taken to the operating room and placed in the supine position. Anesthesia was induced in the usual manner, general endotracheal. The abdomen was draped and prepped with chlorhexidine and the patient was draped and prepped in the usual sterile manner. An 11 blade was used for an inferior umbilical incision. Veress needle was used to try to enter into the abdominal cavity. We noted that we were not in the right plane and we switched to open Eden technique and entered into the abdomen without any complication. Once the #11 trocar was inserted, a 0 degree 10 scope was inserted and the abdominal cavity explored once pneumoperitoneum was achieved. There was no evidence of any intraabdominal injuries. A subxiphoid #11 trocar was then inserted under direct vision without any complications followed by two 5-mm ports in the right mid abdomen. The gallbladder was then grasped and retracted over the liver using nontraumatic graspers and a second grasper was used at the infundibulum to expose the appropriate anatomy. [place] grasper was first used to dissect the critical view of safety. The cystic duct was properly identified and once it was noted that this was the single structure entering the gallbladder, we clipped it using 10-mm clips and divided it with endoscopic jerry. We then continued blunt dissection and noted what seemed to be the cystic artery which was then clipped and divided with endoscopic jerry. The dissection was then carried out bluntly at first until the gallbladder plane at the gallbladder fossa was noted. Electrocautery was used to remove the gallbladder from the gallbladder fossa without any complaints or complications noted. Once the gallbladder was removed, it was placed in the EndoCatch bag and then removed from the infraumbilical incision and given to the director medical surgical for pathological analysis. The abdomen was then irrigated with saline and suction was used to ensure no active bleeding was noted. Any spillage was then removed with suction as well. Once it was noted that the gallbladder fossa at the liver bed was clean and dry and hemostasis was achieved, the abdominal cavity was evacuated with pneumoperitoneum and all trocars removed. The infraumbilical site was closed with 0 Vicryl suture in interrupted fashion x2 under direct vision to ensure closure of the abdominal fascia. The remainder of the incisions were closed with 4-0 Monocryl sutures in an interrupted fashion. The subxiphoid and the infraumbilical incisions were closed with 4-0 Monocryl in the continuous running fashion. The patient tolerated the procedure well without any immediate complications. The instruments and sponge counts were declared correct by the operating room staff. The patient was transferred to the postoperative care unit in stable condition. Sorin Fritz DO Oz Jones MD MTDLiyah
[2018-10-10 00:09] VITALS: RESP 18
[2018-10-10] MEDS: Piperacillin/Tazobact 3.375 GM in Sodium Chloride 0.9% 100 ML IVPB SCH ×2 (02:17→08:40)
[2018-10-10 06:26] LABS: HEMOGLOBIN 12.4 g/dL (12.0-18.0); MEAN CELL VOLUME 89.4 fl (80.0-94.0); MEAN CORPUSCULAR HEMOGLOBIN 29.6 pg (27.0-31.0); MEAN CORPUSCULAR HGB CONC 33.1 g/dL (33.0-37.0); RBC 4.18 Mil/uL (4.40-5.90); RED CELL DISTRIBUTION WIDTH 12.9 % (11.5-14.5); WHITE BLOOD COUNT 13.3 K/uL (4.8-10.8)
[2018-10-10 06:37] LABS: ALB/GLOB RATIO 1.1 (1.0-2.1); ALBUMIN 3.7 g/dL (3.5-5.0); ALT/SGPT 53 U/L (21-72); AST/SGOT 33 U/L (17-59); BLOOD UREA NITROGEN 16 mg/dl (9-20); CALCIUM 8.2 mg/dL (8.4-10.2); GFR NON-AFRICAN AMERICAN > 60
[2018-10-10 08:07] VITALS: BP 105/68; PULSE 70; TEMP 98.8
[2018-10-10 08:10] LABS: SQUAMOUS EPITHIAL < 1 /hpf (0-5); URINE BILIRUBIN NEGATIVE (NEGATIVE); URINE BLOOD NEGATIVE (NEGATIVE); URINE CLARITY CLEAR (Clear); URINE COLOR YELLOW (YELLOW); URINE GLUCOSE (UA) NEG (NEGATIVE); URINE LEUKOCYTE ESTERASE NEG Leu/uL (Negative); URINE PROTEIN NEGATIVE (NEGATIVE); URINE UROBILINOGEN 0.2-1.0 mg/dL (0.2-1.0)
--- NOTE | 2018-10-10 10:21 | CP.PCM.DIS ---
Provider - Provider Date of Admission: 10/08/18 01:51 Attending physician: Mat Knutson MD Consults: 10/08/18 01:53 Surgery [General Surgery Consult] Stat Comment: Consulting Provider: Oz Jones Consulting Physician: Oz Jones Reason for Consult: cholecystitis 10/08/18 06:13 Gastroenterology Consult Routine Comment: Consulting Provider: Raghavendra Pelayo Consulting Physician: Raghavendra Pelayo Reason for Consult: stone in neck of gb Time Spent in preparation of Discharge (in minutes): 20 Diagnosis - Discharge Diagnosis (1) Acute cholecystitis Status: Resolved (2) Biliary colic Status: Resolved Hospital Course - Lab Results Lab Results: Micro Results 10/08/18 07:15 Blood-Venous Blood Culture - Preliminary NO GROWTH AFTER 48 HOURS 10/08/18 07:25 Blood-Venous Blood Culture - Preliminary NO GROWTH AFTER 48 HOURS Most Recent Lab Values WBC 13.3 K/uL (4.8-10.8) H 10/10/18 06:00 RBC 4.18 Mil/uL (4.40-5.90) L 10/10/18 06:00 Hgb 12.4 g/dL (12.0-18.0) 10/10/18 06:00 Hct 37.4 % (35.0-51.0) 10/10/18 06:00 MCV 89.4 fl (80.0-94.0) 10/10/18 06:00 MCH 29.6 pg (27.0-31.0) 10/10/18 06:00 MCHC 33.1 g/dL (33.0-37.0) 10/10/18 06:00 RDW 12.9 % (11.5-14.5) 10/10/18 06:00 Plt Count 137 K/uL (130-400) 10/10/18 06:00 MPV 10.1 fl (7.2-11.7) 10/07/18 21:25 Neut % (Auto) 80.5 % (50.0-75.0) H 10/07/18 21:25 Lymph % (Auto) 13.3 % (20.0-40.0) L 10/07/18 21:25 [place] % (Auto) 4.6 % (0.0-10.0) 10/07/18 21:25 Eos % (Auto) 1.1 % (0.0-4.0) 10/07/18 21:25 Baso % (Auto) 0.5 % (0.0-2.0) 10/07/18 21:25 Neut # (Auto) 10.9 K/uL (1.8-7.0) H 10/07/18 21:25 Lymph # (Auto) 1.8 K/uL (1.0-4.3) 10/07/18 21:25 [place] # (Auto) 0.6 K/uL (0.0-0.8) 10/07/18 21:25 Eos # (Auto) 0.1 K/uL (0.0-0.7) 10/07/18 21:25 Baso # (Auto) 0.1 K/uL (0.0-0.2) 10/07/18 21:25 PT 12.7 Seconds (9.8-13.1) 10/08/18 07:00 INR 1.1 10/08/18 07:00 APTT 32.1 Seconds (25.6-37.1) 10/08/18 07:00 pO2 26 mm/Hg (30-55) L 10/08/18 02:25 VBG pH 7.31 (7.32-7.43) L 10/08/18 02:25 VBG pCO2 61 mmHg (40-60) H 10/08/18 02:25 VBG HCO3 25.6 mmol/L 10/08/18 02:25 VBG Total CO2 32.6 mmol/L (22-28) H 10/08/18 02:25 VBG O2 Sat (Calc) 49.5 % (40-65) 10/08/18 02:25 VBG Base Excess 2.8 mmol/L (0.0-2.0) H 10/08/18 02:25 VBG Potassium 3.9 mmol/L (3.6-5.2) 10/08/18 02:25 Sodium 134.0 mmol/L (132-148) 10/08/18 02:25 Chloride 99.0 mmol/L (98-107) 10/08/18 02:25 Glucose 129 mg/dL (75-110) H 10/08/18 02:25 Lactate 2.6 mmol/L (0.7-2.1) H 10/08/18 02:25 FiO2 21.0 % 10/08/18 02:25 Sodium 138 mmol/l (132-148) 10/10/18 06:00 Potassium 3.8 MMOL/L (3.6-5.0) 10/10/18 06:00 Chloride 101 mmol/L (98-107) 10/10/18 06:00 Carbon Dioxide 32 mmol/L (22-30) H 10/10/18 06:00 Anion Gap 9 (10-20) L 10/10/18 06:00 BUN 16 mg/dl (9-20) 10/10/18 06:00 Creatinine 1.0 mg/dl (0.8-1.5) 10/10/18 06:00 Est GFR ( Amer) > 60 10/10/18 06:00 Est GFR (Non-Af Amer) > 60 10/10/18 06:00 Random Glucose 99 mg/dL (75-110) 10/10/18 06:00 Calcium 8.2 mg/dL (8.4-10.2) L 10/10/18 06:00 Total Bilirubin 1.0 mg/dl (0.2-1.3) 10/10/18 06:00 AST 33 U/L (17-59) 10/10/18 06:00 ALT 53 U/L (21-72) 10/10/18 06:00 Alkaline Phosphatase 58 U/L (38-126) 10/10/18 06:00 Total Protein 7.0 G/DL (6.3-8.2) 10/10/18 06:00 Albumin 3.7 g/dL (3.5-5.0) 10/10/18 06:00 Globulin 3.3 gm/dL (2.2-3.9) 10/10/18 06:00 Albumin/Globulin Ratio 1.1 (1.0-2.1) 10/10/18 06:00 Lipase 79 U/L (23-300) 10/07/18 21:25 Venous Blood Potassium 3.9 mmol/L (3.6-5.2) 10/08/18 02:25 Urine Color Yellow (YELLOW) 10/10/18 07:53 Urine Clarity Clear (Clear) 10/10/18 07:53 Urine pH 7.0 (5.0-8.0) 10/10/18 07:53 Ur Specific Ecru 1.023 (1.003-1.030) 10/10/18 07:53 Urine Protein Negative mg/dL (NEGATIVE) 10/10/18 07:53 Urine Glucose (UA) Neg mg/dL (NEGATIVE) 10/10/18 07:53 Urine Ketones Negative mg/dL (NEGATIVE) 10/10/18 07:53 Urine Blood Negative (NEGATIVE) 10/10/18 07:53 Urine Nitrate Negative (NEGATIVE) 10/10/18 07:53 Urine Bilirubin Negative (NEGATIVE) 10/10/18 07:53 Urine Urobilinogen 0.2-1.0 mg/dL (0.2-1.0) 10/10/18 07:53 Ur Leukocyte Esterase Neg Aimee/uL (Negative) 10/10/18 07:53 Urine RBC (Auto) 7 /hpf (0-3) H 10/10/18 07:53 Urine Microscopic WBC < 1 /hpf (0-5) 10/10/18 07:53 Ur Squamous Epith Cells < 1 /hpf (0-5) 10/10/18 07:53 - Hospital Course Hospital Course: 43 yo male with no pertinent medical history presented to the ED with RUQ pain admitted for Acute Cholecystitis s/p lap dinah, post-op day 2. Hemodynamically stable, afebrile, Leukocytosis trending down. U/s: Cholithiasis, developing acute cholecystitis. CT Abd/Pelvis: Calcified granulomas of the right lower lobe. Calcified mediastinal and hilar lymph nodes. Impacted gallstones in the neck of the gallbladder. Distended, diffusely thickened gallbladder. Findings are suggestive of mild changes of acute calculous cholecystitis. Fat-containing right inguinal hernia without incarceration. Uncomplicated colonic diverticulosis. Symptoms improving since lap dinah. Pt medically stable for discharge to home on PO antibiotics and pain medication. Recommend follow up surgery clinic within 1 week. Discharge Exam - Head Exam Head Exam: ATRAUMATIC, NORMAL INSPECTION - Eye Exam Eye Exam: Normal appearance - ENT Exam ENT Exam: Mucous Membranes Moist - Respiratory Exam Respiratory Exam: NORMAL BREATHING PATTERN, UNREMARKABLE. absent: Respiratory Distress - Cardiovascular Exam Cardiovascular Exam: REGULAR RHYTHM - GI/Abdominal Exam GI & Abdominal Exam: Soft, Tenderness (most tender around umbilical lap site) - Neurological Exam Neurological exam: Alert, Normal Gait, Oriented x3 - Psychiatric Exam Psychiatric exam: Normal Affect, Normal Mood - Skin Skin Exam: Normal Color, Warm Discharge Plan - Discharge Medications Prescriptions: Ciprofloxacin HCl [Cipro] 500 mg PO Q12 #14 tab Metronidazole [Flagyl] 500 mg PO TID #21 tab oxyCODONE/Acetaminophen [Percocet 5/325 mg Tab] 1 tab PO Q6 PRN #10 tab PRN Reason: Pain, Severe (8-10) - Follow Up Plan Condition: FAIR Disposition: HOME/ ROUTINE Instructions: Cholecystectomy, Laparoscopic Surgery, Laceration Repair With Glue (DC), Gallstones (DC) Additional Instructions: Please follow up with Dr. Jones in 2 weeks. Please call to schedule your appointment. Resume a regular, healthy diet. Resume any and all home medications. Activity as tolerated. No heavy lifting greater than 15 lb for next 4 weeks. Ok to shower. Avoid pools, baths, jacuzzis for next 2 weeks. For pain, over the counter Tylenol (650mg) or Ibuprofen (600mg) every 4-6 hours as needed. If symptoms worsen, promptly return to nearest ED. Referrals: Oz Jones MD [Staff Provider] - Raghavendra Pelayo MD [Staff Provider] -
[2018-10-10 10:22] VITALS: O2SAT 100
--- NOTE | 2018-10-10 10:47 | CP.PCM.PN ---
Subjective - Date & Time of Evaluation Date of Evaluation: 10/10/18 Time of Evaluation: 10:45 - Subjective Subjective: Surgery Progress note. Dr. Jones Pt seen and examined at bedside. No acute events overnight. No N/V/D. Tolerating diet. No new complaints. No fevers or chills. Objective - Vital Signs/Intake and Output Vital Signs (last 24 hours): Temp Pulse Resp BP Pulse Ox 98.8 F 70 18 105/68 100 10/10/18 08:06 10/10/18 08:06 10/10/18 08:06 10/10/18 08:06 10/10/18 10:27 - Medications Medications: Current Medications Famotidine (Pepcid) 20 mg IVP DAILY [facility] Last Admin: 10/10/18 08:40 Dose: 20 mg Piperacillin Sod/Tazobactam (Sod 3.375 gm/ Sodium Chloride) 100 mls @ 100 mls/hr IVPB Q6H [facility]; Protocol Last Admin: 10/10/18 08:40 Dose: 100 mls/hr Ibuprofen (Motrin Tab) 400 mg PO Q6 PRN PRN Reason: Pain, Mild (1-3) Ondansetron HCl (Zofran Inj) 4 mg IVP Q6 PRN PRN Reason: Nausea/Vomiting Oxycodone/Acetaminophen (Percocet 5/325 Mg Tab) 1 tab PO Q4 PRN PRN Reason: Pain, moderate (4-7) Stop: 10/11/18 15:50 - Labs Labs: 10/10/18 06:00 10/10/18 06:00 PT 12.7 Seconds (9.8-13.1) 10/08/18 07:00 INR 1.1 10/08/18 07:00 APTT 32.1 Seconds (25.6-37.1) 10/08/18 07:00 - Constitutional Appears: Well, Non-toxic - Head Exam Head Exam: ATRAUMATIC, NORMOCEPHALIC - Eye Exam Eye Exam: Normal appearance - ENT Exam ENT Exam: Mucous Membranes Moist - Cardiovascular Exam Cardiovascular Exam: REGULAR RHYTHM - GI/Abdominal Exam Additional comments: Mild razia-incisional tenderness. Incisions clean, dry and intact with dermabond. - Neurological Exam Neurological Exam: Alert, Awake, Oriented x3 Assessment and Plan - Assessment and Plan (Free Text) Assessment: 43yo M with cholecystitis s/p Lap Isabel. POD 2 Plan: - Continue diet as tolerated -oral abx rx - monitor patient clinically -stable for discharge from surgery point of view -patient may shower, however advised patient not to take a bath - patient to follow up with Dr. Jones in 2 weeks. Further recs as per Dr. Jones.
== END 2018-10-10 11:35 | disposition home or self-care (01) | DRG 263 ==
LOC: H.ER 20:45 → H.ERHOLD 10-08 01:51 → H.MEDSURG1 10-08 03:09
PROVIDERS: ADMIT Internal Medicine; ATTEND Internal Medicine
PROC: 0FT44ZZ Resection of Gallbladder, Percutaneous Endoscopic Approach (ICD-10-PCS; principal; 2018-10-08 10:15)
DX: K80.00 Calculus of gallbladder with acute cholecystitis without obstruction (principal); K40.90 Unilateral inguinal hernia, without obstruction or gangrene, not specified as recurrent; K82.A1 Gangrene of gallbladder in cholecystitis; K57.30 Diverticulosis of large intestine without perforation or abscess without bleeding